=== PATIENT | female | born 1980 | race Two or more races ===

== ENCOUNTER 2020-12-14 06:03 | Day surgery (SDC) | payer OTHER ==
[~2020-12-14 06:03] MED LIST: ATENOLOL50 MG; AUGMENTIN1 TAB.SR . PO; CIPRO HC OTIC S10 ML OT; DICLOFENAC SODI50 MG PO; PERCOCET 10/6501 TAB PO; PHENERGAN25 MG PO
== END 2020-12-14 10:30 | disposition home or self-care (01) ==
LOC: AMB-ENDOS 06:03
PROVIDERS: ATTEND Surgery
DX: D13.1 Benign neoplasm of stomach (principal); K44.9 Diaphragmatic hernia without obstruction or gangrene; Z20.822 Contact with and (suspected) exposure to COVID-19

== ENCOUNTER 2021-05-28 10:53 | Outpatient (CLI) | payer OTHER | END 2021-05-28 10:54 | disposition home or self-care (01) | LOC: RAD 10:53 | PROVIDERS: ATTEND Specialist | DX: M51.36 Other intervertebral disc degeneration, lumbar region (principal); M16.0 Bilateral primary osteoarthritis of hip; M17.0 Bilateral primary osteoarthritis of knee ==

== ENCOUNTER 2022-08-16 13:51 | Emergency (ER) | payer OTHER ==
[~2022-08-16] VITALS: Ht 177.8 cm; Wt 81.6 kg
== END 2022-08-16 19:38 | disposition home or self-care (01) ==
LOC: ER 13:51
DX: R51.9 Headache, unspecified (principal); R42 Dizziness and giddiness; W22.8XXA Striking against or struck by other objects, initial encounter; Y93.89 Activity, other specified; Y92.511 Restaurant or cafe as the place of occurrence of the external cause